=== PATIENT | female | born 1950 | race Caucasian/White ===

== ENCOUNTER 2024-06-23 05:46 | Day surgery (SDC) | payer MEDICARE, MEDICAID ==
[~2024-06-23] VITALS: Ht 142.2 cm; Wt 60.9 kg
[2024-06-23] VITALS (8 sets, daily range): BP systolic 109–135; BP diastolic 50–61; PULSE 78–85
[~2024-06-23 05:46] MED LIST: SODIUM CHLORIDE 0.9% 1,000 ML ONE
[2024-06-23] MEDS ORDERED: IOHEXOL 300 MG/ML 100 ML VIAL ONE (06:31)
[2024-06-23] MEDS ORDERED: VERAPAMIL HCL 2.5 MG/ML 2 ML VIAL ONE (06:31)
[2024-06-23] MEDS ORDERED: HEPARIN SODIUM 1000 UNITS/NS 1,000 ML ONE (06:31)
[2024-06-23] MEDS ORDERED: LIDOCAINE/PF 1% 30 ML VIAL ONE (06:31)
[2024-06-23] MEDS ORDERED: NITROGLYCERIN 50 MG/D5% WATER 250 ML ONE (06:31)
[2024-06-23] MEDS ORDERED: SODIUM BICARBONATE 50 MEQ/50 ML VIAL ONE (06:31)
[2024-06-23 06:40] LABS: ANION GAP 5 mmol/L (8-16); CALCIUM, TOTAL 9.7 mg/dL (8.8-10.5); CARBON DIOXIDE 29 mmol/L (22-29); CHLORIDE 107 mmol/L (98-107); CREATININE 0.87 mg/dL (0.60-1.30); GLOMERULAR FILTR. RATE CALC > 60 mL/min (>60); GLUCOSE,RANDOM 119 mg/dL (70-110); POTASSIUM 4.3 mmol/L (3.5-5.1); SODIUM SERUM 141 mmol/L (136-145); UREA NITROGEN, BLOOD 18 mg/dL (7-18)
[2024-06-23 06:45] LABS: PROTHROMBIN TIME 10.9 SEC (9.4-11.6)
[2024-06-23] MEDS: SODIUM CHLORIDE 0.9% 1,000 ML IV ONE (06:45)
[2024-06-23] MEDS ORDERED: LISI40TA9 PO (06:51)
[2024-06-23] MEDS ORDERED: AMLO10TA55 PO (06:51)
[2024-06-23] MEDS ORDERED: SEMA2PEN SQ (06:51)
[2024-06-23] MEDS ORDERED: INSU3INS3 SQ (06:51)
[2024-06-23] MEDS ORDERED: EMPA25TA3 PO (06:51)
[2024-06-23] MEDS ORDERED: ROSU40TA88 PO (06:51)
[2024-06-23] MEDS ORDERED: METO-408 PO (06:51)
[2024-06-23] MEDS ORDERED: ASPI-1444 PO (06:51)
[2024-06-23 06:52] LABS: BASOPHILS % (AUTO) 0.3 % (0.0-2.0); HEMATOCRIT 40.5 % (36-46); HEMOGLOBIN 14.1 g/dL (12.0-16.0); LYMPHOCYTES # (AUTO) 1.9 K/uL (1.0-4.8); LYMPHOCYTES % (AUTO) 30.4 % (22.0-44.0); MEAN CORPUSCULAR HEMOGLOBIN 29.5 pg (26.0-34.0); MEAN CORPUSCULAR HGB CONC 34.8 G/dL (31.0-37.0); MEAN CORPUSCULAR VOLUME 85 fL (80-100); MONOCYTES # (AUTO) 0.5 K/uL (0.1-1.0); MONOCYTES % (AUTO) 7.6 % (2.0-9.0); NEUTROPHILS # (AUTO) 3.5 K/uL (1.8-7.7); NEUTROPHILS % (AUTO) 57.7 % (40.0-70.0); PLATELET COUNT (AUTO) 350 K/uL (150-450); RED BLOOD CELL COUNT(AUTO) 4.78 MIL/uL (4.00-5.20); RED CELL DISTRIBUTION WIDTH 14.3 % (11.5-14.5); WHITE BLOOD COUNT (AUTO) 6.1 K/uL (4.5-11.0)
[2024-06-23] MEDS ORDERED: FentaNYL CITRATE PF 100 MCG/2 ML VIAL ONE (07:42)
[2024-06-23] MEDS ORDERED: MIDAZOLAM HCL 2 MG/2 ML VIAL ONE (07:42)
[2024-06-23] MEDS: VERAPAMIL HCL 2.5 MG/ML 2 ML VIAL IARTER ONE (08:01)
[2024-06-23] MEDS: HEPARIN SODIUM,PORCINE 1,000 UNITS/ML 10 ML VIAL IARTER ONE (08:02)
[2024-06-23] MEDS: LIDOCAINE 1% 30 ML/SOD BICARB 8.4% 4 ML SQ ONE (08:02)
[2024-06-23] MEDS: MIDAZOLAM HCL 2 MG/2 ML VIAL IVP ONE (08:03)
[2024-06-23] MEDS: IOHEXOL 300 MG/ML 100 ML VIAL IARTER ONE (08:03)
[2024-06-23] MEDS: FentaNYL CITRATE PF 100 MCG/2 ML VIAL IVP ONE ×2 (08:03→08:43)
[2024-06-23] MEDS: NITROGLYCERIN/D5W 50 MG/250 ML IV BOTTLE IARTER ONE (08:04)
[2024-06-23] MEDS: SODIUM CHLORIDE 0.9% 500 ML IV ONE (08:05)
[2024-06-23] MEDS: HEPARIN SODIUM 1000 UNITS/NS 1,000 ML IARTER ONE (08:11)
== END 2024-06-23 13:42 | disposition home or self-care (01) ==
LOC: CATHLAB 05:46
PROVIDERS: ATTEND Internal Medicine
DX: R94.39 Abnormal result of other cardiovascular function study (principal); I25.119 Atherosclerotic heart disease of native coronary artery with unspecified angina pectoris; I10 Essential (primary) hypertension; E78.00 Pure hypercholesterolemia, unspecified; E11.9 Type 2 diabetes mellitus without complications; Z79.4 Long term (current) use of insulin; Z79.82 Long term (current) use of aspirin; Z79.899 Other long term (current) drug therapy; Z79.01 Long term (current) use of anticoagulants; Z98.890 Other specified postprocedural states; Z87.01 Personal history of pneumonia (recurrent)
CPT/HCPCS: 93456; 93005; 80048; 85025; 85610; 85730; 36415; 99152; 99153; 93567; C1760; J3010; J1644; J3490 ×4; J2250; J7030; Q9967